=== PATIENT | male | born 1950 | race Caucasian/White ===

== ENCOUNTER 2017-05-16 13:56 | Emergency (ER) | payer MEDICARE, OTHER ==
[2017-05-16] MEDS ORDERED: Aspirin 81 MG Tab.Chew PO ONE (14:07)
[2017-05-16] MEDS ORDERED: Sodium Chloride 0.9% 10 ML Syringe FLUSH PRN (14:07)
--- NOTE | 2017-05-16 14:09 | EDM.PDOC ---
ED HPI GENERAL MEDICAL PROBLEM - General Chief Complaint: Cardiovascular Problem Stated Complaint: SHORTNESS OF BREATH Time Seen by Provider: 05/16/17 14:05 Source of Information: Reports: Patient, Old Records, RN History Limitations: Reports: No Limitations - History of Present Illness INITIAL COMMENTS - FREE TEXT/NARRATIVE: 66 yo male presents with EDMOND on and off for about a week. Was in the clinic in [place] and nothing was found. Has a pHx of CAD and was stented about 11 yrs ago. His only meds now are ASA daily at night and a statin. He denies a hx of HTN, AODM, thyroid dz, or heart valve problems. He has no hx of Afib. He has not had any chest pains or diaphoresis lately. Onset: Unknown/Unsure (on and off for about a week) Onset Date: 05/10/17 Duration: Day(s):, Intermittent, Waxing/Waning Location: Reports: Chest Quality: Reports: Other (no pain) Severity: Mild Improves with: Reports: Rest Worsens with: Reports: Movement (exertion) Context: Reports: Other (uncertain, does have a hx of CAD) Associated Symptoms: Reports: Shortness of Breath. 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 Denies: Fever, Chills, Night Sweats, Diaphoresis HEENT: Reports: No Symptoms Respiratory: Reports: Shortness of Breath (with exertion primarily). Denies: Wheezing, Pleuritic Chest Pain, Cough, Sputum, Hemoptysis Cardiovascular: Reports: Dyspnea on Exertion. Denies: Chest Pain, Claudication , Edema, Lightheadedness, Orthopnea, Palpitations (not aware) Endocrine: Reports: No Symptoms GI/Abdominal: Reports: No Symptoms : Reports: No Symptoms Musculoskeletal: Reports: No Symptoms Skin: Reports: No Symptoms Neurological: Reports: No Symptoms ED EXAM, GENERAL - Physical Exam Exam: See Below Exam Limited By: No Limitations General Appearance: Alert, WD/WN, No Apparent Distress, Obese Eye Exam: Bilateral Eye: Normal Inspection Ears: Normal External Exam, Normal Canal, Hearing Grossly Normal, Normal TMs Ear Exam: Bilateral Ear: Auricle Normal, Canal Normal, TM normal Nose: Normal Inspection, Normal Mucosa, No Blood Throat/Mouth: Normal Inspection, Normal Lips, Normal Oropharynx, Normal Voice, No Airway Compromise Head: Atraumatic, Normocephalic Neck: Normal Inspection, Supple, Non-Tender Respiratory/Chest: No Respiratory Distress, Lungs Clear, Normal Breath Sounds Cardiovascular: Tachycardia, Irregularly Irregular GI/Abdominal: Normal Bowel Sounds, Soft, Non-Tender, No Distention Back Exam: Normal Inspection Extremities: Normal Inspection, Normal Range of Motion, Non-Tender, No Pedal Edema Neurological: Alert, Oriented, CN II-XII Intact, Normal Cognition, No Motor/ Sensory Deficits Psychiatric: Normal Affect, Normal Mood Skin Exam: Warm, Dry, Intact, Normal Color, No Rash Lymphatic: No Adenopathy EKG INTERPRETATION EKG Date: 05/16/17 Time: 14:05 Rhythm: A-Fib Rate (Beats/Min): 114 [place]: Normal P-Wave: Present QRS: Normal ST-T: Normal QT: Normal Comparison: NA - No Prior EKG Course - Vital Signs Text/Narrative:: Converted to NSR here in the ER with rate in the low 70's. CHADS2 Score 0 Last Recorded V/S: Last Vital Signs Temp 36.2 C 05/16/17 14:33 Pulse 136 H 05/16/17 14:33 Resp 23 H 05/16/17 14:33 BP 155/118 H 05/16/17 14:33 Pulse Ox 95 05/16/17 14:33 - Orders/Labs/Meds Orders: Active Orders 24 hr Category Date Time Status Cardiac Monitoring [RC] .As Directed Care 05/16/17 14:06 Active EKG Documentation Completion [RC] ASDIRECTED Care 05/16/17 14:06 Active UA W/MICROSCOPIC [URIN] Stat Lab 05/16/17 14:07 Ordered Sodium Chloride 0.9% [Saline Flush] Med 05/16/17 14:07 Active 10 ml FLUSH ASDIRECTED PRN Saline Lock Insert [OM.PC] Routine Oth 05/16/17 14:07 Ordered EKG 12 Lead [EK] Routine Ther 05/16/17 14:06 Ordered Medication Orders Sodium Chloride (Saline Flush) 10 ml FLUSH ASDIRECTED PRN PRN Reason: Keep Vein Open Last Admin: 05/16/17 14:24 Dose: 10 ml Labs: Laboratory Tests 05/16/17 05/16/17 05/16/17 Range/Units 14:08 14:08 14:08 WBC 7.5 (4.5-11.0) K/uL RBC 5.31 (4.30-5.90) M/uL Hgb 15.6 H (12.0-15.0) g/dL Hct 46.7 (40.0-54.0) % MCV 88 (80-98) fL MCH 29 (27-31) pg MCHC 33 (32-36) % Plt Count 244 (150-400) K/uL Sodium 139 L (140-148) mmol/L Potassium 4.0 (3.6-5.2) mmol/L Chloride 107 (100-108) mmol/L Carbon Dioxide 23 (21-32) mmol/L Anion Gap 13.0 (5.0-14.0) mmol/L BUN 28 H (7-18) mg/dL Creatinine 1.3 (0.8-1.3) mg/dL Est Cr Clr Drug Dosing 59.53 mL/min Estimated GFR (MDRD) 55 L (>60) Glucose 144 H (74-106) mg/dL Calcium 8.6 (8.5-10.1) mg/dL Troponin I 0.025 (0.000-0.056) ng/mL TSH, Ultra Sensitive 2.470 (0.358-3.740) uIU/mL Meds: Medications Generic Name Dose Route Start Last Admin Trade Name Freq PRN Reason Stop Dose Admin Sodium Chloride 10 ml 05/16/17 14:07 05/16/17 14:24 Saline Flush FLUSH 10 ml ASDIRECTED PRN Administration Keep Vein Open Discontinued Medications Generic Name Dose Route Start Last Admin Trade Name Freq PRN Reason Stop Dose Admin Aspirin 324 mg 05/16/17 14:07 05/16/17 14:23 Aspirin PO 05/16/17 14:08 324 mg ONETIME ONE Administration Metoprolol Tartrate 50 mg 05/16/17 14:17 05/16/17 14:24 Lopressor PO 05/16/17 14:18 50 mg ONETIME ONE Administration Departure - Departure Time of Disposition: 15:07 Disposition: Home, Self-Care 01 Condition: Good Clinical Impression: Paroxysmal atrial fibrillation Referrals: Jewels Boles NP [Primary Care Provider] - Forms: ED Department Discharge - My Orders Last 24 Hours: My Active Orders 05/16/17 14:06 Cardiac Monitoring [RC] .As Directed EKG Documentation Completion [RC] ASDIRECTED EKG 12 Lead [EK] Routine 05/16/17 14:07 UA W/MICROSCOPIC [URIN] Stat Sodium Chloride 0.9% [Saline Flush] 10 ml FLUSH ASDIRECTED PRN Saline Lock Insert [OM.PC] Routine - Assessment/Plan Last 24 Hours: My Active Orders 05/16/17 14:06 Cardiac Monitoring [RC] .As Directed EKG Documentation Completion [RC] ASDIRECTED EKG 12 Lead [EK] Routine 05/16/17 14:07 UA W/MICROSCOPIC [URIN] Stat Sodium Chloride 0.9% [Saline Flush] 10 ml FLUSH ASDIRECTED PRN Saline Lock Insert [OM.PC] Routine
[2017-05-16] MEDS ORDERED: Metoprolol Tartrate 50 MG Tab PO ONE (14:17)
== END 2017-05-16 15:20 | disposition home or self-care (01) ==
LOC: JP.ED 13:56
DX: I48.0 Paroxysmal atrial fibrillation (principal); Z79.82 Long term (current) use of aspirin
CPT/HCPCS: 36415; 80048; 84443; 84484; 85027; 93005; 99284; A9270; J7050